=== PATIENT | female | born 1950 | race Caucasian/White ===

== ENCOUNTER → 2022-06-24 14:43 | Outpatient (BNVA) | payer OTHER, SELFPAY | PROVIDERS: Family Provider Family Medicine; PCP Family Medicine; Visit Provider Thoracic Surgery (Cardiothoracic Vascular Surgery) | DX: I83.90 Asymptomatic varicose veins of unspecified lower extremity (principal) | CPT/HCPCS: 99202; 99203 ==

== ENCOUNTER → 2022-11-11 08:44 | Outpatient (BNVA) | payer OTHER, SELFPAY | PROVIDERS: Family Provider Family Medicine; PCP Family Medicine; Referring Provider Family Medicine; Visit Provider Internal Medicine | DX: R13.10 Dysphagia, unspecified (principal); E03.9 Hypothyroidism, unspecified; N89.8 Other specified noninflammatory disorders of vagina; Z79.890 Hormone replacement therapy | CPT/HCPCS: 36415; 84439; 84443; 99204 ==

== ENCOUNTER → 2023-01-19 09:57 | Outpatient (BNVA) | payer OTHER, SELFPAY | PROVIDERS: Family Provider Family Medicine; PCP Family Medicine; Visit Provider Internal Medicine | DX: E03.9 Hypothyroidism, unspecified (principal); R13.10 Dysphagia, unspecified | CPT/HCPCS: 84439; 84443 ==

== ENCOUNTER → 2023-01-27 10:47 | Outpatient (BNVA) | payer OTHER, SELFPAY | PROVIDERS: Family Provider Family Medicine; PCP Family Medicine; Visit Provider Internal Medicine | DX: E03.9 Hypothyroidism, unspecified (principal); N89.8 Other specified noninflammatory disorders of vagina; Z79.890 Hormone replacement therapy | CPT/HCPCS: 99214 ==

== ENCOUNTER → 2023-03-28 15:30 | Outpatient (BNVA) | payer OTHER, SELFPAY | PROVIDERS: Family Provider Family Medicine; PCP Family Medicine; Visit Provider Internal Medicine | DX: R13.10 Dysphagia, unspecified (principal); E03.9 Hypothyroidism, unspecified; N89.8 Other specified noninflammatory disorders of vagina | CPT/HCPCS: 84439; 84443; 84480 ==

== ENCOUNTER → 2023-03-30 11:01 | Outpatient (BNVA) | payer OTHER, SELFPAY | PROVIDERS: Family Provider Family Medicine; PCP Family Medicine; Visit Provider Internal Medicine | DX: E03.9 Hypothyroidism, unspecified (principal); N89.8 Other specified noninflammatory disorders of vagina; R53.83 Other fatigue; G47.33 Obstructive sleep apnea (adult) (pediatric); Z79.890 Hormone replacement therapy | CPT/HCPCS: 99214 ==

== ENCOUNTER → 2023-09-07 14:18 | Outpatient (BNVA) | payer OTHER, SELFPAY | PROVIDERS: Family Provider Family Medicine; PCP Family Medicine; Visit Provider Nurse Practitioner Family | DX: L85.3 Xerosis cutis (principal); L81.4 Other melanin hyperpigmentation; L57.0 Actinic keratosis; L57.8 Other skin changes due to chronic exposure to nonionizing radiation | CPT/HCPCS: 17000; 99213 ==

== ENCOUNTER → 2023-10-10 10:41 | Outpatient (BNVA) | payer OTHER, SELFPAY | PROVIDERS: Family Provider Family Medicine; PCP Family Medicine; Visit Provider Internal Medicine | DX: E03.9 Hypothyroidism, unspecified (principal); N89.8 Other specified noninflammatory disorders of vagina; R53.83 Other fatigue; Z79.890 Hormone replacement therapy | CPT/HCPCS: 99213; 99214 ==

== ENCOUNTER → 2024-01-31 15:05 | Outpatient (BNVA) | payer OTHER, SELFPAY | PROVIDERS: Family Provider Family Medicine; PCP Family Medicine; Visit Provider Nurse Practitioner Women's Health | DX: N89.8 Other specified noninflammatory disorders of vagina (principal) | CPT/HCPCS: 87491; 87591 ==

== ENCOUNTER → 2024-03-01 14:34 | Outpatient (BNVA) | payer OTHER, SELFPAY | PROVIDERS: Family Provider Family Medicine; PCP Family Medicine; Visit Provider Dermatology | DX: L90.0 Lichen sclerosus et atrophicus (principal); L57.0 Actinic keratosis; L81.4 Other melanin hyperpigmentation; Z80.8 Family history of malignant neoplasm of other organs or systems; L57.8 Other skin changes due to chronic exposure to nonionizing radiation | CPT/HCPCS: 17000; 99214 ==

== ENCOUNTER 2024-03-29 13:02 | Outpatient (CLI) | payer OTHER, SELFPAY ==
--- NOTE | 2024-03-29 13:43 | CT_ITS ---
WS: [id number] CT ABDOMEN AND PELVIS NONCONTRAST HISTORY: UPPER ABDOMINAL PAIN, UNDER RIBS TECHNIQUE: Imaging performed through the abdomen and pelvis. Coronal and sagittal reformats are submi tted. All CT scans at [facility] use at least one of these dose optimization techniques: auto mated exposure control; mA and/or kV adjustment per patient size (includes targeted exams where dose is matched to clinical indication); or iterative reconstruction. DLP: 515.77 mGy.cm COMPARISON: None available. Lower thorax: Thin linear scar or platelike atelectasis RIGHT lower lobe. No pneumonia. Normal size h eart. Bilateral breast implants. Liver: Normal size liver. No mass or bile duct dilatation. Gallbladder: Mildly contracted. No adjacent inflammation. Pancreas: Normal size and attenuation. Normal pancreatic duct. No pancreatitis or mass. Spleen: Normal. Adrenal glands: Normal. No mass. Right kidney: Normal size kidney with no mass or hydronephrosis. Left kidney: Normal size kidney with no mass or hydronephrosis. Aorta: Mildly ectatic but nonaneurysmal aorta. Diameter 2.8 cm at its maximum. No free fluid, intraperitoneal air or significant lymphadenopathy. GI tract: Stomach is markedly distended with food products. This may be related to recent meal or gas troparesis. There is no obstructive pattern. Small bowel is normal. Mild diffuse constipation through out the colon. Prior appendectomy. Mild scattered diverticula without acute diverticulitis. Abdominal wall: Small umbilical hernia contains fat only. Pelvis: No free fluid in the pelvis. Osseous structures: L4 anterolisthesis by 5 mm. Advanced facet joint arthritis at L4-5 and L5-S1. Jessica morl's node superior endplate of L4. CT/CT abdomen pelvis wo con [id number] IMPRESSION: 1. No ascites or adenopathy. 2. Stomach is markedly distended with food products/food. This could be relate d to a gastroparesis, outlet obstruction or recent ingestion of food. No mass i s identified at the gastroduodenal junction but this is a noncontrast evaluatio n. 3. Moderate atherosclerosis abdominal aorta with ectasia. 4. No renal obstruction. 5. Prior appendectomy. 6. Mild distal colonic diverticulosis without acute diverticulitis.
== END 2024-03-29 13:03 | disposition home or self-care (01) ==
LOC: RAD 13:02
PROVIDERS: Family Provider Family Medicine; PCP Family Medicine; Visit Provider Family Medicine
DX: I77.811 Abdominal aortic ectasia (principal); Z90.49 Acquired absence of other specified parts of digestive tract
CPT/HCPCS: 74176

== ENCOUNTER → 2024-04-12 11:02 | Outpatient (BNVA) | payer OTHER, SELFPAY | PROVIDERS: Family Provider Family Medicine; PCP Family Medicine; Visit Provider Internal Medicine | DX: L90.0 Lichen sclerosus et atrophicus (principal); L81.4 Other melanin hyperpigmentation; L87.8 Other transepidermal elimination disorders; L57.0 Actinic keratosis; E03.9 Hypothyroidism, unspecified; N89.8 Other specified noninflammatory disorders of vagina; R53.83 Other fatigue; L85.3 Xerosis cutis | CPT/HCPCS: 36415; 84439; 84443; 99214 ==

== ENCOUNTER → 2024-11-22 14:59 | Outpatient (BNVA) | payer OTHER, SELFPAY | PROVIDERS: Family Provider Family Medicine; PCP Family Medicine; Visit Provider Nurse Practitioner Family | DX: L90.0 Lichen sclerosus et atrophicus (principal); L81.4 Other melanin hyperpigmentation; L57.8 Other skin changes due to chronic exposure to nonionizing radiation; L57.0 Actinic keratosis | CPT/HCPCS: 17000; 99213 ==